=== PATIENT | female | born 1995 | race Two or more races ===

== ENCOUNTER 2022-09-01 14:28 | Emergency (ER) | payer OTHER ==
[2022-09-01 14:53] VITALS: BP 107/67; PULSE 82; RESP 20; TEMP 98.8; BMI 20.9
[2022-09-01] MEDS ORDERED: LACTATED RINGERS SOLUTION 1000 ML INFUS.BAG IV ONE (16:45)
[2022-09-01] MEDS ORDERED: FAMOTIDINE 20 MG/50 ML IVPB 20 MG/50 ML MG IVPB ONE ×2 (16:45→17:02)
[2022-09-01] MEDS ORDERED: ONDANSETRON 4 MG/2 ML VIAL IVPUSH ONE (16:45)
[2022-09-01] MEDS ORDERED: ONDANSETRON 4 MG/2 ML VIAL ONE (16:55)
[2022-09-01 17:03] LABS: BASO % 0.3 % (0-2.0); HEMATOCRIT 39.3 % (32.4-45.2); HEMOGLOBIN 13.5 GM/dL (10.7-15.3); LYMPH % 24.2 % (8-40); MCH 30.6 pg (25.7-33.7); MCHC 34.3 g/dl (32.0-36.0); MEAN CELL VOLUME 89.3 fl (80-96); MEAN PLT VOLUME 8.2 fl (7.5-11.1); MONO % 5.3 % (3.8-10.2); NEUT % 69.2 % (42.8-82.8); PLATELET COUNT 257 10^3/uL (134-434); RDW 12.8 % (11.6-15.6); WHITE BLOOD COUNT 7.7 K/mm3 (4.0-10.0)
[2022-09-01 17:25] LABS: CALCIUM 9.2 mg/dL (8.5-10.1)
[2022-09-01 17:26] LABS: ALBUMIN 3.8 g/dl (3.4-5.0)
[2022-09-01 17:29] LABS: CREATININE 0.6 mg/dL (0.55-1.3)
[2022-09-01 17:30] LABS: BILIRUBIN,TOTAL 0.4 mg/dL (0.2-1); TOT PROT 7.2 g/dl (6.4-8.2)
== END 2022-09-01 18:51 | disposition home or self-care (01) ==
LOC: JER 14:28 → JERFT 14:28
PROC: 3E033GC Introduction of Other Therapeutic Substance into Peripheral Vein, Percutaneous Approach (ICD-10-PCS; principal; 2022-09-01)
PROC: 3E033GC Introduction of Other Therapeutic Substance into Peripheral Vein, Percutaneous Approach (ICD-10-PCS; 2022-09-01)
DX: R11.2 Nausea with vomiting, unspecified (principal); R10.84 Generalized abdominal pain
CPT/HCPCS: 36415; 80053; 83690; 84703; 85025; 99284-25

== ENCOUNTER 2023-07-15 01:20 | Emergency (ER) | payer OTHER ==
[2023-07-15 01:31] VITALS: BMI 24.1
[2023-07-15] MEDS ORDERED: MAG HYDROX/AL HYDROX/SIMETH 30 ML UNIT-DOSE CUP PO ONE (04:10)
[2023-07-15] MEDS ORDERED: ACETAMINOPHEN 500 MG TABLET (FP) PO ONE (04:10)
[2023-07-15] MEDS ORDERED: FAMOTIDINE 20 MG TABLET PO ONE (04:10)
[2023-07-15] MEDS ORDERED: MAG HYDROX/AL HYDROX/SIMETH 30 ML UNIT-DOSE CUP ONE (04:17)
[2023-07-15] MEDS ORDERED: ACETAMINOPHEN 325 MG TABLET (FP) ONE (04:17)
[2023-07-15] MEDS ORDERED: FAMOTIDINE 20 MG TABLET ONE (04:17)
[2023-07-15] MEDS ORDERED: SODIUM CHLORIDE 1,000 ML IV STA (04:29)
[2023-07-15 05:33] LABS: EPI CELLS 12 /uL (0-25.1); HYALINE CASTS 0 /uL (0-3.1); PH,URINE 5.5 (5.0-8.0); URINE APPEARANCE CLEAR; URINE BACTERIA 454 /uL (0-1359); URINE BILIRUBIN NEGATIVE (NEGATIVE); URINE COLOR YELLOW; URINE GLUCOSE (UA) NEGATIVE (NEGATIVE); URINE KETONE 2+ (NEGATIVE); URINE LEUK ESTERASE NEGATIVE (NEGATIVE); URINE NITRITE NEGATIVE (NEGATIVE); URINE PROTEIN NEGATIVE (NEGATIVE); URINE RBC 17 /uL (0-23.9); URINE WBC 19 /uL (0-25.8)
[2023-07-15 05:35] LABS: BASO % 0.6 % (0-2.0); HEMATOCRIT 34.9 % (32.4-45.2); HEMOGLOBIN 12.2 GM/dL (10.7-15.3); MCH 29.5 pg (25.7-33.7); MCHC 34.8 g/dl (32.0-36.0); MEAN CELL VOLUME 84.7 fl (80-96); MEAN PLT VOLUME 8.3 fl (7.5-11.1); MONO % 8.6 % (3.8-10.2); NEUT % 48.8 % (42.8-82.8); PLATELET COUNT 279 10^3/uL (134-434); RBC 4.12 M/mm3 (3.60-5.2); RDW 13.6 % (11.6-15.6); WHITE BLOOD COUNT 5.8 K/mm3 (4.0-10.0)
[2023-07-15 05:39] LABS: POTASSIUM 4.1 mmol/L (3.5-5.1)
[2023-07-15 05:43] LABS: BLOOD UREA NITROGEN 9.9 mg/dL (7-18); CALCIUM 8.4 mg/dL (8.5-10.1)
[2023-07-15 05:44] LABS: ALBUMIN 3.5 g/dl (3.4-5.0)
[2023-07-15 05:46] LABS: CREATININE 0.7 mg/dL (0.55-1.3)
[2023-07-15 05:48] LABS: BILIRUBIN,TOTAL 0.5 mg/dL (0.2-1)
[2023-07-15 07:08] VITALS: BP 91/48; PULSE 64; RESP 17; TEMP 98.5
== END 2023-07-15 07:11 | disposition home or self-care (01) ==
LOC: JER 01:20
PROC: 3E0337Z Introduction of Electrolytic and Water Balance Substance into Peripheral Vein, Percutaneous Approach (ICD-10-PCS; principal; 2023-07-15)
DX: R10.30 Lower abdominal pain, unspecified (principal); R19.7 Diarrhea, unspecified; R05.9 Cough, unspecified; R11.0 Nausea; J11.1 Influenza due to unidentified influenza virus with other respiratory manifestations; Z20.822 Contact with and (suspected) exposure to COVID-19
CPT/HCPCS: 0241U-QW; 36415; 80053; 81003; 83690; 84703; 85025; 87086; 99285-25